=== PATIENT | female | born 1985 | race African-American/Black ===

== ENCOUNTER 2017-07-30 09:07 | Outpatient (CLI) | payer BC, OTHER ==
[~2017-07-30 09:07] MED LIST: Gadobenate Dimeglumine 529 MG/1 ML (20ML VIAL) ONE
--- NOTE | 2017-07-30 12:10 | MRI ---
MRI BRAIN WITH AND WITHOUT CONTRAST: Technique: Multiplanar, multisequential imaging of the brain obtained. Post contrast images obtained with administration of IV MultiHance. History: Relapsing remitting multiple sclerosis. However, the technologist states that there are no n ew complaints from the patient and this is performed in follow up. Comparison: MRI 07-29-16 FINDINGS: Ventricles have normal size and position. FLAIR sequence again shows numerous white matter hyperintensities on FLAIR sequence. These findings a re consistent with the history of multiple sclerosis. There are several large globular shaped lesions in the centrum semiovale and periventricular white matter which appear relatively stable. There appe ars to be some improvement, however, in some of the posterior periventricular lesions when compared t o prior study. Certainly there is no evidence of worsening. There is no evidence of enhancement. IMPRESSION: Numerous white matter hyperintensities seen in both cerebral hemispheres consistent with the history of MS. There are several large globular shaped lesions which are stable. There is suggestion of some improvement, however, in some of the posterior periventricular intensities when compared to the prior study. No evidence of progression. POS: [facility]
--- NOTE | 2017-07-30 12:17 | MRI ---
CERVICAL SPINE MRI WITH AND WITHOUT CONTRAST: CLINICAL HISTORY: Multiple sclerosis. FINDINGS: The cervical spinal cord demonstrates appropriate caliber and contour. There is patient motion which degrades image quality. There is a focal area of increased T2 signal of the left hemicord at the C3 -4 level. An additional signal abnormality is seen posteriorly within the cervical spinal cord at th e mid C2 level. There is abnormal intramedullary enhancement involving signal abnormality of the lef t hemicord at the C3-4 level. Subtle enhancement is also demonstrated within the signal abnormality at the C2 level of the cervical spinal cord. There are mild disk bulges of the cervical spinal cord without significant central canal or neural fo raminal stenosis. IMPRESSION: Evidence of active demyelination involving the proximal cervical spine, as discussed above. POS: [facility]
== END 2017-07-30 09:08 | disposition home or self-care (01) ==
LOC: SCSMRI 09:07
PROVIDERS: ATTEND Psychiatry & Neurology Neurology
DX: G35 Multiple sclerosis (principal)
CPT/HCPCS: 70553; 72156; A9579

== ENCOUNTER 2017-08-10 11:00 | Emergency (ER) | payer BC ==
[2017-08-10] MEDS ORDERED: Ketorolac Tromethamine 30 MG/ML VIAL ONE (14:10)
== END 2017-08-10 14:30 | disposition home or self-care (01) ==
LOC: ERS 11:00
DX: H57.12 Ocular pain, left eye (principal); H53.8 Other visual disturbances; G35 Multiple sclerosis
CPT/HCPCS: 96372; J1885

== ENCOUNTER 2017-11-01 09:39 | Day surgery (SDC) | payer BC ==
[2017-10-29 10:23] VITALS: BMI 36.6
[2017-11-01] MEDS ORDERED: CEFAZOLIN/Water 2 GM/20 ML SYRINGE ONE (11:13)
[2017-11-01] MEDS ORDERED: Midazolam HCl 2 mg/2 ml Vial ONE ×2 (11:57→13:11)
[2017-11-01] MEDS ORDERED: Bupivacaine/Epinephrine 0.25% 30 ML VIAL ONE (13:03)
[2017-11-01] MEDS ORDERED: Meperidine HCl/PF 25 MG/ML VIAL ONE (13:11)
--- NOTE | 2017-11-01 14:28 | OP ---
DATE OF PROCEDURE: 11/01/2017 PREOPERATIVE DIAGNOSES: Multiple sclerosis and venous insufficiency. POSTOPERATIVE DIAGNOSES: Multiple sclerosis and venous insufficiency. PROCEDURE: Tunneled central line with subcutaneous port (MediPort, CT injectable). SURGEON: Fadi Hernandez M.D. ANESTHESIA: General. ESTIMATED BLOOD LOSS: Minimal. COMPLICATIONS: None. SPECIMEN: None. FINDINGS: Tip of the catheter is at the atriocaval junction. PROCEDURE IN DETAIL: The patient was taken to the operating room and placed supine on the table. Af ter general anesthetic was obtained, bilateral neck and chest is prepped and draped in a sterile on license of [facility] ion. Local anesthetic infiltrated over the right internal jugular vein. Intrajugular vein cannulate d using a 22-gauge finder needle followed by a Seldinger needle. Wire was passed into superior vena cava under fluoroscopy guidance. A 3 cm incision made in the right upper chest below the clavicle. Subcutaneous pocket made below the lower incision. Tubing for the MediPort tunneled from the inferio r to superior incision and suture sheath was placed over the wire into the superior vena cava under f luoroscopic guidance. The dilator and wire removed and end of the catheter shredded and the sheath i s peeled away. The tip of the catheter is at the atriocaval junction. MediPort tubing cut to fit th e MediPort at the lower incision. MediPort sewn to the chest wall in subcutaneous pocket using Prole ne suture. The MediPort flushes and draws blood without difficulty, flushed with a heparin flush. T he wounds were irrigated and closed using 3-0 Vicryl, 4-0 Monocryl, and Dermabond. The patient was t aken to the recovery room in stable condition. All instrument counts, needle counts, lap counts were correct.
--- NOTE | 2017-11-01 14:58 | RAD ---
SINGLE VIEW OF THE CHEST: Comparison: None. History: Mediport placement. FINDINGS: Single view of the chest shows a normal sized cardiomediastinal silhouette. There is a right IJ Medip ort with its tip in the superior vena cava. There is no consolidation, mass, or pleural effusion. IMPRESSION: No evidence of acute cardiopulmonary disease. POS: [facility]
[2017-11-01] MEDS ORDERED: HYDROcodone/Acetaminophen 5/325 mg Tablet ONE (15:14)
[2017-11-01] MEDS ORDERED: Lidocaine 1% PF 5 ML VIAL ONE (15:17)
[2017-11-01] MEDS ORDERED: PROPOFOL 200 MG/20 ML VIAL ONE (15:17)
== END 2017-11-01 16:10 | disposition home or self-care (01) ==
LOC: SDC 09:39
PROVIDERS: ATTEND Surgery
PROC: 02HV33Z Insertion of Infusion Device into Superior Vena Cava, Percutaneous Approach (ICD-10-PCS; principal; 2017-11-01)
PROC: B518ZZA Fluoroscopy of Superior Vena Cava, Guidance (ICD-10-PCS; principal; 2017-11-01)
DX: G35 Multiple sclerosis (principal); I87.2 Venous insufficiency (chronic) (peripheral); E66.9 Obesity, unspecified; D64.9 Anemia, unspecified; F17.200 Nicotine dependence, unspecified, uncomplicated; Z68.36 Body mass index [BMI] 36.0-36.9, adult; Z79.899 Other long term (current) drug therapy
CPT/HCPCS: 71045; 76000; C1788; J1642; J2001; J2175; J2250; J2704

== ENCOUNTER 2018-05-10 08:34 | Outpatient (CLI) | payer BC ==
[2018-05-10] MEDS ORDERED: Gadobenate Dimeglumine 529 MG/1 ML (20ML VIAL) ONE (09:00)
--- NOTE | 2018-05-10 15:09 | MRI ---
BRAIN MRI WITH AND WITHOUT CONTRAST: Date: 05/10/18 COMPARISON: 07/30/17. HISTORY: Relapsing and remitting multiple sclerosis. TECHNIQUE: Brain MRI is performed with and without intravenous Gadolinium administration. Multisequential, multi planar imaging is performed. FINDINGS: There are essentially stable T2 and FLAIR white matter hyperintensities with a configuration that is compatible with the patient's known history of multiple sclerosis. The overall number of lesions has not changed. There is involvement of the corpus callosum, which is also similar to the previous exami nation. The T2 and FLAIR white matter hyperintensities do not have any associated restricted diffusio n. There is no enhancement. No MR evidence of active demyelination. Calvarium has a normal T1 marrow signal intensity. Midline brain parenchymal structures are unremarka ble. No pathologic enhancement of the brain parenchyma. Central arterial flow-voids are maintained. Absent restricted diffusion. Adequate aeration of the sinuses and mastoid air cells. IMPRESSION: 1. Absent restricted diffusion. No acute infarct. 2. Stable multifocal FLAIR and T2 white matter hyperintensities compatible with patient's known hist ory of multiple sclerosis. There is no evidence of restricted diffusion or enhancement to suggest act kiesha demyelination. POS: [facility]
--- NOTE | 2018-05-10 15:37 | MRI ---
CERVICAL SPINE MRI WITH AND WITHOUT CONTRAST 05/10/18 HISTORY: Multiple sclerosis. COMPARISON: 07/30/17 TECHNIQUE: Cervical spine MRI is performed without intravenous and with intravenous gadolinium administration. M ultisequential, multiplanar imaging is performed. FINDINGS: There is appropriate T1 marrow signal intensity of the cervical vertebra. Cervical spine vertebral jose dy height is maintained. There is no fracture. No significant STIR hyperintensity to suggest vertebr al body edema or ligamentous injury. There is a single T2 hyperintense lesions along the posterior aspect of the cervical cord at the C2 l evel measuring 0.5 cm in anterior posterior dimension. This lesion does not have any associated enhan cement. The previously noted enhancing focus at the C3-C4 level is not currently identified. No T2 hy perintensity in the cord is appreciated on the current exam. Remainder of the cervical cord is unrema rkable. No significant central canal stenosis or neural foraminal narrowing. IMPRESSION: 1. Interval resolution of previously noted T2 hyperintensity in the anterior aspect of the cervi johnathon spine at the C3-C4 level. 2. There is subtle T2 hyperintensity involving the posterior cord at the C2 vertebral body leve l without associated enhancement. POS: [facility]
--- NOTE | 2018-05-10 15:57 | MRI ---
MRI THORACIC SPINE WITH AND WITHOUT CONTRAST: 05/10/18 HISTORY: Relapsing, remitting multiple sclerosis. COMPARISON: None. TECHNIQUE: Thoracic spine MRI is performed with and without intravenous gadolinium administration. Multisequenti al, multiplanar imaging is performed. FINDINGS: An appropriate T1 marrow signal intensity of the thoracic vertebrae. Thoracic spine vertebral body he ight is maintained. There is no fracture. No significant STIR hyperintensity to suggest vertebral bod y edema or ligamentous injury. The visualized mediastinum, heart, solid organs and lung parenchyma are unremarkable. Minimal depende nt atelectatic changes. Postcontrast images do not demonstrate any abnormal enhancement of the thorac ic vertebrae. Thoracic cord has an overall normal size and signal intensity. No significant T2 or STIR hyperintens ity throughout the thoracic cord. No evidence of cord expansion. No evidence of abnormal cord enhance ment. T4-T5: Small left sided disc bulge. Mild central canal stenosis. T5-T6: Prominent left sided disc bulge. Mild central canal stenosis. Mild left foraminal narrowing. R ight neural foramen is patent. T6-T7: Small right sided disc protrusion. Mild central canal stenosis. Mild right and left foramina l narrowing. The conus medullaris appears to be approximately at the L1 level. IMPRESSION: 1. No evidence of significant central canal stenosis. There is degenerative disc disease at T4- T5, T5-T6, and T6-T7 as described above. No high grade foraminal narrowing. 2. No evidence of a demyelinating plaque in the thoracic cord. POS: [facility]
== END 2018-05-10 08:35 | disposition home or self-care (01) ==
LOC: SCSMRI 08:34
PROVIDERS: ATTEND Psychiatry & Neurology Neurology
DX: G35 Multiple sclerosis (principal); M51.34 Other intervertebral disc degeneration, thoracic region
CPT/HCPCS: 70553; 72156; 72157; A9579

== ENCOUNTER 2018-10-31 08:49 | Outpatient (CLI) | payer MEDICAID ==
[2018-10-31] MEDS ORDERED: Gadobenate Dimeglumine 529 MG/1 ML (20ML VIAL) ONE ×2 (09:00)
--- NOTE | 2018-10-31 14:12 | MRI ---
PRE AND POST CONTRAST ENHANCED MRI IMAGES BRAIN: DATE: 10/31/2018. COMPARISON: Comparison is made to a previous exam from 05/10/2018. TECHNIQUE: Multiplanar, multisequence pre- and [id number]-[id number] contrast MRI images brain obtained. HISTORY: Relapsing MS, G35. FINDINGS: MRI images demonstrate numerous areas of signal abnormality seen in the periventricular white matter compatible with demyelinating lesions compatible with the patient's history of multiple sclerosis. T he number and sizes of the plaques are numerous; however, they are stable and not changed since the p revious comparison exam. None of them appear to be enhancing to suggesting acute and active MS plaqu es. The ventricles are of normal size. No evidence of areas of diffusion restriction seen to suggest acute strokes. IMPRESSION: Numerous periventricular white matter lesions compatible with the patient's history of multiple scler osis. MRI appearance is stable. No newly developed masses or lesions seen. No evidence of acutely enhancing lesions or newly developed abnormalities seen. POS: [facility]
--- NOTE | 2018-10-31 14:15 | MRI ---
MRI CERVICAL SPINE WITH AND WITHOUT CONTRAST: HISTORY: Patient with multiple sclerosis. COMPARISON: 05/10/2018 TECHNIQUE: Multiplanar, multisequence, pre and post contrast enhanced MRI of the cervical spine obtained. FINDINGS: Images demonstrate the spinal cord to be unremarkable, except for a minimal area of increased T2 sign al seen at the posterior aspect of the C2 spinal cord, just to the left of the midline, posteriorly. This is stable and unchanged. No newly developed masses or lesions seen. The spinal cord is otherw ise unremarkable. Minimal broad-based disk bulge is seen at C3-C4, C4-C5, C5-C6 and C6-C7. No signi ficant degree of central or neural foraminal narrowing is seen. IMPRESSION: Stable MRI appearance of the cervical spine. POS: [facility]
== END 2018-10-31 08:50 | disposition home or self-care (01) ==
LOC: SCSMRI 08:49
PROVIDERS: ATTEND Nurse Practitioner Acute Care
DX: G35 Multiple sclerosis (principal); R90.89 Other abnormal findings on diagnostic imaging of central nervous system
CPT/HCPCS: 70553; 72156; A9577

== ENCOUNTER 2018-11-07 08:00 | Outpatient (CLI) | payer MEDICAID ==
[2018-11-07] MEDS ORDERED: Gadobenate Dimeglumine 529 MG/1 ML (20ML VIAL) ONE (09:00)
--- NOTE | 2018-11-07 14:45 | MRI ---
MRI THORACIC SPINE WITH AND WITHOUT CONTRAST: DATE: 11/07/2018. HISTORY: A 33-year-old female with G35, relapsing remitting multiple sclerosis. TECHNIQUE: Multisequence MRI of thoracic spine obtained in sagittal and axial planes, pre- and post-IV injection of 20 mL of MultiHance Gadolinium-based contrast agent. COMPARISON: 05/10/2018. FINDINGS: The thoracic spinal cord is normal in size. All of the axial images are degraded. No definite intra medullary signal abnormality or abnormal intramedullary enhancement is identified based on the sagitt al sequences. At T4-5, there is a left paracentral small focal disk-osteophyte complex which does not contact the s jose manuel cord. At T5-6, there is a larger central and left paracentral disk-osteophyte complex that pro trudes into the left anterior aspect of the spinal canal without cord compression or high-grade central spinal canal stenosis. No high-grade neural foraminal stenosis at any level. Bone marrow s ignal is normal. Schmorl's node at inferior end plate of T10. Vertebral body heights are maintained . No high-grade central spinal canal stenosis at any level. No major interval change. IMPRESSION: 1. Suboptimal study. 2. No convincing evidence of demyelinating plaque in the thoracic spinal cord. 3. Left paracentral disk-osteophyte complex protruding into the left anterior aspect of the spinal c anal at T5-6. 4. No cord impingement. 5. No interval change overall since 05/10/2018. POS: [facility]
--- NOTE | 2018-11-07 14:53 | MRI ---
LUMBAR SPINE MRI WITH AND WITHOUT CONTRAST: Date: 11/07/18 COMPARISON: None. HISTORY: Relapsing and remitting multiple sclerosis. TECHNIQUE: Multiplanar, multisequence MR imaging of the lumbar spine obtained without and with contrast. FINDINGS: The sagittal STIR imaging demonstrates no focal area of osseous marrow edema. Lumbar vertebral body height and alignment appears within normal limits. On the basis of five lumbar-type vertebral bodies, the conus medullaris terminates in the L1 region. T12-L1: Intervertebral disc height and signal intensity appears within normal limits. Mild facet hyp ertrophy on the right. No significant central canal or neural foraminal stenosis. L1-2: Mild facet hypertrophy on the right. Intervertebral disc height and signal intensity within no rmal limits with no significant central canal or neural foraminal stenosis. L2-3: Intervertebral disc height and signal intensity within normal limits with no significant centr al canal or neural foraminal stenosis. L3-4: Intervertebral disc height and signal intensity is within normal limits with no significant ce ntral canal or neural foraminal stenosis. L4-5: Mild bilateral facet hypertrophy. Mild left neural foraminal stenosis. No significant central canal or right neural foraminal stenosis. L5-S1: No significant central canal or neural foraminal stenosis. Benign hemangioma noted at L5. The postcontrast imaging demonstrates mild enhancement associated with the soft tissues adjacent to t he L3-4 facet joint on the left suggesting inflammatory change. Question recent facet joint injection . Postcontrast imaging otherwise unremarkable with no abnormal enhancement involving the nerve roots of the cauda equina, the imaged osseous structures, or the intervertebral discs. IMPRESSION: No severe central canal or neural foraminal stenosis. Area of enhancement adjacent to the left facet joint at L3-4 as detailed above. POS: [facility]
== END 2018-11-07 08:01 | disposition home or self-care (01) ==
LOC: SCSMRI 08:00
PROVIDERS: ATTEND Nurse Practitioner Acute Care
DX: G35 Multiple sclerosis (principal); M25.78 Osteophyte, vertebrae
CPT/HCPCS: 72157; 72158; A9577

== ENCOUNTER 2019-04-24 09:16 | Outpatient (CLI) | payer OTHER ==
[2019-04-24] MEDS ORDERED: Gadobenate Dimeglumine 529 MG/1 ML (20ML VIAL) ONE (10:54)
--- NOTE | 2019-04-24 11:32 | MRI ---
LUMBAR SPINE MRI WITH AND WITHOUT CONTRAST: DATE: 04/24/2019. COMPARISON: 11/07/2018. HISTORY: Relapsing remitting multiple sclerosis. TECHNIQUE: Multiplanar multisequence MR imaging of the lumbar spine is obtained with and without contrast. FINDINGS: The sagittal STIR imaging demonstrates no focal area of osseous marrow edema. Lumbar vertebral body height and alignment appears normal within the lumbar spine. Benign hemangioma noted at the L5 level. On the basis of 5 lumbar type vertebral bodies, the conus medullaris terminates at the L1-2 level. T12-L1: Mild bilateral facet hypertrophy with no central canal or neural foraminal stenosis. L1-2: Bilateral facet hypertrophy, left greater than right. No significant central canal or neural fo raminal stenosis. L2-3: Mild bilateral facet hypertrophy. No central canal or neural foraminal stenosis. L3-4: Mild bilateral facet hypertrophy with no significant central canal or neural foraminal stenosis . L4-5: Minimal disc bulge with no central canal stenosis. Mild bilateral facet hypertrophy. Mild left neural foraminal stenosis. L5-S1: No significant central canal or neural foraminal stenosis. The postcontrast imaging demonstrates no abnormal enhancement involving the contents of the thecal sa c, the imaged osseous structures, or the intervertebral discs. There is mild enhancement of the soft tissues posterior to the left L3-4 facet joints suggesting mild inflammatory change, slightly less conspicuous than on the prior exam. IMPRESSION: No acute findings. Degenerative change as detailed above. Transcribed Date/Time: 04/24/2019 2:00 PM
--- NOTE | 2019-04-24 12:53 | MRI ---
MRI of thoracic spine with and without contrast: 04/24/2019 COMPARISON: 11/07/2018 HISTORY: Multiple sclerosis relapsing remitting TECHNIQUE: Multiplanar multisequence MR imaging of the thoracic spine obtained with and without contr ast FINDINGS: The sagittal STIR imaging demonstrates no focal area of osseous marrow edema. No anterolisthesis or retrolisthesis is noted within the thoracic spine. Images are limited on the basis of motion artifact. No definite focal area of abnormal signal intensi ty is identified within the thoracic cord. No significant central canal or neural foraminal stenosis noted within the thoracic spine. Stable lef t paracentral disc protrusion at T5-6 with partial effacement of the ventral thecal sac. There is a small left paracentral disc protrusion also noted at T4-5 with no associated central canal stenosis. Postcontrast imaging is markedly limited by motion artifact and demonstrates no obvious abnormal enha ncement. IMPRESSION: Motion limited examination demonstrating no evidence for abnormal signal within the thora cic cord.
== END 2019-04-24 09:17 | disposition home or self-care (01) ==
LOC: BICMRI 09:16
PROVIDERS: ATTEND Nurse Practitioner Acute Care
DX: G35 Multiple sclerosis (principal); M51.86 Other intervertebral disc disorders, lumbar region; M48.061 Spinal stenosis, lumbar region without neurogenic claudication
CPT/HCPCS: 72157; 72158; A9577

== ENCOUNTER 2019-05-01 09:11 | Outpatient (CLI) | payer OTHER ==
[2019-05-01] MEDS ORDERED: Gadobenate Dimeglumine 529 MG/1 ML (20ML VIAL) ONE (13:22)
--- NOTE | 2019-05-01 14:14 | MRI ---
MRI BRAIN WITH AND WITHOUT CONTRAST: 05/01/2019 HISTORY: Relapsing, remitting multiple sclerosis. COMPARISON: 10/31/2018 TECHNIQUE: Multiplanar, multisequence MR imaging of the brain is obtained with and without contrast. FINDINGS: The diffusion-weighted imaging demonstrates no evidence for acute infarction. Axial gradient echo im aging demonstrates no evidence for intracranial hemorrhage. The visualized paranasal sinuses and mastoid air cells appear grossly unremarkable. Arterial flow voids at the axial level of the skull base appear grossly unremarkable on the T2 weight ed imaging. There are numerous foci of increased T2 and FLAIR signal within the periventricular, deep, and subcor tical white matter bilaterally, consistent with the patient's history of multiple sclerosis. There h as been no significant interval change in the distribution of white matter disease on FLAIR imaging w hen compared to the 10/31/2018 examination. A few stable foci of abnormal signal intensity identifie d within the corpus callosum, within the ventral body, the posterior body and the region of the splen ium. On the noncontrast enhanced imaging, there is no evidence for progression of disease. Post contrast imaging demonstrates no abnormal enhancement within the brain parenchyma to suggest the presence of active demyelination. IMPRESSION: 1. Numerous periventricular white matter lesions, consistent with the patient's history of multiple sclerosis. These findings are stable when compared to the 10/31/2018 examination. 2. No new lesions are seen and post contrast imaging demonstrates no evidence for active demyelinati on. POS: [facility]
--- NOTE | 2019-05-01 17:32 | MRI ---
MRI CERVICAL SPINE WITH AND WITHOUT CONTRAST: Indications: Relapsing MS. Comparison: MRI cervical spine, 10-31-18 FINDINGS: The focal area of increased T2 signal seen in the C2 spinal cord on the prior study is again seen. Th is is very subtle on T2 axial images and is not well seen at all on T2 sagittal. It is most apparent on the gradient echo axial. There is no new lesion seen. There is no evidence of enhancement. Cervical vertebrae maintain normal height and alignment. Minimal disc bulges are seen as described pr eviously at C4-5 and C5-6 and C6-7 levels. IMPRESSION: Small focus of T2 signal in the spinal cord at the C2 level to the left of midline is less pronounced today than it was on prior study. It is best seen on gradient echo axial images today. No new lesion . No abnormal enhancement. POS: [facility]
== END 2019-05-01 09:12 | disposition home or self-care (01) ==
LOC: BICMRI 09:11
PROVIDERS: ATTEND Nurse Practitioner Acute Care
DX: G35 Multiple sclerosis (principal); G93.9 Disorder of brain, unspecified
CPT/HCPCS: 70553; 72156; A9577

== ENCOUNTER 2020-02-23 09:31 | Emergency (ER) | payer OTHER ==
[2020-02-23] MEDS ORDERED: Ondansetron ODT 4 MG TAB ONE (10:19)
[2020-02-23 10:46] LABS: #Lymphocytes 0.5 thou/uL (1.20-3.40); #Monocytes 0.6 thou/uL (0.11-0.59); #Neutrophils 14.3 thou/uL (1.40-6.50); %Basophils 0.1 % (0.0-1.0); %Eosinophils 0.1 % (0.0-10.0); %Lymphocytes 3.4 % (21.0-51.0); %Monocytes 3.9 % (0.0-10.0); %Neutrophils 92.5 % (42.0-75.0); Hemoglobin 13.6 g/dL (12.0-16.0); Mean Corpuscular HGB CONC 33.6 g/dL (32.0-36.0); Mean Corpuscular Volume 89.2 fL (78.0-98.0); Mean Platelet Volume 8.1 fL (7.4-10.4); Platelet Count 378 thou/uL (130-400); RBC Distribution Width 14.6 % (11.5-14.5); Red Blood Cell (RBC) Count 4.53 mill/uL (4.20-5.40); White Blood Cell (WBC) Count 15.5 thou/uL (4.8-10.8)
[2020-02-23 10:51] LABS: BHCG - Serum Negative (NEGATIVE); Pregs Control Background? CLEAR/WHITE (CLR/WHITE); Pregs Control Bar Appear? YES (CONTROL BAR)
[2020-02-23 11:08] LABS: ALT (SGPT) 14 U/L (8-55); AST (SGOT) 15 U/L (5-34); Albumin 4.3 g/dL (3.5-5.0); Alkaline Phosphatase 102 U/L (40-110); Anion Gap 14 mmol/L (10-20); BUN (Urea Nitrogen) 9 mg/dL (7.0-18.7); Bilirubin, Total 0.5 mg/dL (0.2-1.2); Calc. Creatinine Clearance 0 mL/min (70-130); Calcium 9.7 mg/dL (7.8-10.44); Carbon Dioxide 23 mmol/L (22-29); Chloride 103 mmol/L (98-107); Estimated GFR-MDRD Greater than 90; Globulin 3.8 g/dL (2.4-3.5); Glucose 97 mg/dL (70-105); Lipase 4 U/L (8-78); Potassium 3.8 mmol/L (3.5-5.1); Protein, Total 8.1 g/dL (6.0-8.3); Sodium 136 mmol/L (136-145)
[2020-02-23 11:20] LABS: Bacteria/HPF 4+ HPF (None Seen); Bilirubin Negative (Negative); Blood, Urine 2+ (Negative); Clarity Clear (Clear); Glucose, Urine (Dipstick) Normal (Negative); Ketone, Urine 60 mg/dL (Negative); Leukocyte Negative Leu/uL (Negative); Nitrite 2+ (Negative); Protein, Urine (Dipstick) 30 mg/dL (Neg-Trace); RBC/HPF 0-3 HPF (0-3); Specific Gravity, Urine 1.015 (1.002-1.036); Squamous Epithelial 0-3 HPF (0-3); Urobilinogen Normal mg/dL (Less than 2); WBC/HPF 0-3 HPF (0-3); pH, Urine 5.5 (5.0-9.0)
== END 2020-02-23 11:35 | disposition home or self-care (01) ==
LOC: ERS 09:31
DX: R11.2 Nausea with vomiting, unspecified (principal); N39.0 Urinary tract infection, site not specified
CPT/HCPCS: 36415; 80053; 81003; 81015; 83690; 84703; 85025; 87077; 87086; 87186; 99284; Q0162

== ENCOUNTER 2020-03-04 09:05 | Outpatient (CLI) | payer OTHER ==
--- NOTE | 2020-03-06 13:25 | MRI ---
Exam: Cervical spine MRI with and without contrast HISTORY: Multiple sclerosis follow-up. COMPARISON: 05/01/2019 FINDINGS: T1 marrow signal intensity of the cervical vertebra. Cervical spine vertebral body height is maintain ed. No fracture. No significant STIR hyperintensity to suggest vertebral body edema or ligamentous injury. Visualized brain parenchyma, mid to distal cervical cord and the upper thoracic cord have normal size and signal intensity. Stable T2 hyperintensity involving the posterior left aspect of the cervical cord at the mid C2 level. No new or additional T2 hyperintense foci are appreciated. No cord expansio n. No cord malacia. Postcontrast images do not demonstrate any abnormal enhancement. C2-C3: No significant central canal stenosis or significant neural foraminal narrowing C3-C4: Based disc bulge minimally flattens the ventral thecal sac. No significant central canal steno sis. Bilaterally, neural foramina are patent C4-C5: Central disc herniation effaces subarachnoid space. Minimal mass effect upon the left hemicord . Mild central canal stenosis. Bilaterally, neural foramina are patent C5-6: Broad-based disc bulge with a central disc herniation. Subarachnoid space is nearly effaced. Mi ld canal stenosis. Bilaterally, neural foramina are patent C6-C7: Central disc herniation abuts the thecal sac. Subarachnoid space is maintained. Mild central c anal stenosis. Neural foramina are patent C7-T1: No significant central canal stenosis or significant neural foraminal narrowing. Sagittal images demonstrate a partially empty sella. IMPRESSION: 1. Stable T2 hyperintense focus involving the posterior aspect of the cervical cord at the C2 level. There is no associated enhancement to suggest active demyelination. No new lesions. 2. Varying degrees of central canal stenosis due to degenerative changes as detailed above. 3. Partially empty sella is noted. Findings are nonspecific. Correlate clinically for intracranial hy pertension. Transcribed Date/Time: 03/06/2020 1:37 PM
--- NOTE | 2020-03-06 13:44 | MRI ---
MRI BRAIN WITH AND WITHOUT CONTRAST: 03/06/20 INDICATIONS; Relapsing remitting multiple sclerosis. COMPARISON: MRI brain 05/01/19. FINDINGS: Ventricles have normal size and position. Review of FLAIR sequence again shows white matter hyperintensity to both cerebral hemispheres involvi ng periventricular and deep white matter. The size and number of these white matter lesions appear st able from 05/01/19. There is no abnormal enhancement identified. No evidence of restricted diffusion. Paranasal sinuses appear clear. Cerebral vessels show expected flow voids. Dural venous sinuses appear patent. IMPRESSION: White matter hyperintensity again seen consistent with the history of multiple sclerosis. No signific ant change when compared to 05/01/19. No abnormal enhancement. POS: [facility]
--- NOTE | 2020-03-06 13:58 | MRI ---
MRI THORACIC SPINE WITH AND WITHOUT CONTRAST: 03/06/20 INDICATIONS: Multiple sclerosis. Comparison made to MRI thoracic spine dated 04/24/19. FINDINGS: Exam is somewhat limited due to motion artifact and decreased signal due to body habitus. Thoracic ve rtebrae maintain height and alignment and exhibit normal signal. Small disc protrusions area again se en at the T4-5 level and T5-6 level which were described previously. These are unchanged and mildly c ompress the anterior thecal sac on the left but do not impinge on the cord. No abnormal cord enhancem ent seen. IMPRESSION: Stable MRI thoracic spine when compared to prior exam. No cord lesion identified. POS: [facility]
== END 2020-03-04 09:06 | disposition home or self-care (01) ==
LOC: SCSMRI 09:05
PROVIDERS: ATTEND Nurse Practitioner Acute Care
DX: G35 Multiple sclerosis (principal); Z86.69 Personal history of other diseases of the nervous system and sense organs
CPT/HCPCS: 70553; 72156; 72157